=== PATIENT | male | born 2000 | race Caucasian/White ===

== ENCOUNTER 2023-08-25 10:30 | Day surgery (SDC) | payer OTHER ==
[~2023-08-25] VITALS: Ht 193 cm; Wt 85.7 kg
[~2023-08-25 10:30] MED LIST: CETI10CA2 PO; ZOLO100T PO
[2023-08-25] MEDS: NS 1,000 ML IV ONE (11:10)
[2023-08-25] MEDS ORDERED: propofoL 200 MG/20 ML VIAL As Ordered ONE (12:13)
[2023-08-25 12:37] VITALS: BP 139/69; O2SAT 98
== END 2023-08-25 12:39 | disposition home or self-care (01) ==
LOC: M OPP 10:30
PROVIDERS: ATTEND Surgery
DX: K64.0 First degree hemorrhoids (principal); K62.89 Other specified diseases of anus and rectum; Z79.899 Other long term (current) drug therapy

== ENCOUNTER → 2024-12-19 | Outpatient (CLI) | payer OTHER ==
[2024-12-19 12:39] LABS: PLATELET COUNT, AUTOMATED 252 10^3/uL (150-450)
[2024-12-19 12:54] LABS: ERYTHROCYTE SEDIMENTATION RATE 5 mm/hr (0-15)
[2024-12-19 13:20] LABS: C REACTIVE PROTEIN QUANTITATIV < 0.50 MG/DL (<1.0)
[2024-12-19 13:22] LABS: ALT/SGPT 20 U/L (7.0-40); AST/SGOT 16 U/L (<34); CALCIUM LEVEL 9.2 MG/DL (8.5-10.1); CARBON DIOXIDE LEVEL 27 MMOL/L (20-31); CHLORIDE LEVEL 105 MMOL/L (98-107); CREATININE FOR GFR 0.75 MG/DL (0.70-1.30); GLOMERULAR FILTRATION RATE > 90.0 (>60); POTASSIUM SERUM 4.1 MMOL/L (3.5-5.1); SODIUM LEVEL 145 MMOL/L (136-145)
== END ==
LOC: M WUC 10:59
PROVIDERS: ATTEND Physician Assistant
DX: K60.30 Anal fistula, unspecified (principal); K62.89 Other specified diseases of anus and rectum

== ENCOUNTER → 2024-12-20 | Outpatient (REF) | payer OTHER | LOC: M LAB REF 16:52 | PROVIDERS: ATTEND Physician Assistant | DX: K60.30 Anal fistula, unspecified (principal); K62.89 Other specified diseases of anus and rectum ==